=== PATIENT | male | born 1940 | race Caucasian/White ===

== ENCOUNTER 2017-06-23 21:50 | Emergency (ER) | payer MEDICARE, OTHER ==
[~2017-06-23] VITALS: Ht 172.7 cm; Wt 62.7 kg
[2017-06-23 21:53] VITALS: TEMP 98.1
[2017-06-23] MEDS ORDERED: GLUCOTROL XL10 MG PO (21:58)
[2017-06-23] MEDS ORDERED: ASPIRIN 81M81 MG/TA2 PO (21:59)
[2017-06-23] MEDS ORDERED: INDERAL LA 60MG60 MG PO (21:59)
[2017-06-23 22:35] LABS: BASO # 0.1 (0.0-0.2); BASO % 0.8 % (0.0-2.0); EOS # 0.3 (0.0-0.7); EOS % 4.1 % (0-4.0); GRAN % 44.6 % (42.2-75.2); HEMOGLOBIN 17.5 g/dl (13.5-18.0); LYMPH # 2.5 (1.2-3.4); LYMPH % 37.9 % (20.0-51.0); MEAN CELL VOLUME 92 fl (80.0-100.0); MEAN CORPUSCULAR HEMOGLOBIN 31 pg (27.0-31.0); MEAN CORPUSCULAR HGB CONC 33 g/dl (33.0-37.0); MEAN PLATELET VOLUME 10.4 fl (7.4-10.4); MONO # 0.8 (0.1-0.6); MONO % 12.1 % (1.7-9.3); PLATELET COUNT 190 K/mm3 (130-400); REDCELL DISTRIBUTION WIDTH-CV 11.8 % (11.5-14.5); WHITE BLOOD COUNT 6.6 K/mm3 (4.8-10.8)
[2017-06-23 22:39] LABS: ADJUSTED CALCIUM 9.4 mg/dL (8.4-10.2); ALBUMIN 4.2 gm/dL (3.5-5.0); BILIRUBIN,TOTAL 0.7 mg/dL (0.0-1.0); CALCIUM 9.6 mg/dL (8.4-10.2); CREATININE, serum 1.53 mg/dL (0.66-1.25); POTASSIUM 4.1 mmol/L (3.4-5.0); TOTAL PROTEIN 7.4 gm/dL (6.4-8.2)
[2017-06-23 22:52] LABS: TROPONIN-I 0.157 ng/mL (0.000-0.034)
[2017-06-23 22:53] LABS: HEMATOCRIT 52.6 % (42.0-52.0)
[2017-06-23 23:00] LABS: PROTHROMBIN TIME 10.8 SECONDS (9.7-12.8)
[2017-06-24 01:39] VITALS: BP 130/79; PULSE 50
== END 2017-06-24 02:00 | disposition short-term general hospital (02) ==
LOC: COL.ER 21:50
PROVIDERS: Emergency Medicine
DX: I21.4 Non-ST elevation (NSTEMI) myocardial infarction (principal); E11.9 Type 2 diabetes mellitus without complications; G25.0 Essential tremor; Z79.84 Long term (current) use of oral hypoglycemic drugs